=== PATIENT | male | born 1970 | race Caucasian/White ===

== ENCOUNTER 2020-12-04 12:34 | Inpatient (IN) | payer OTHER ==
[2020-12-04 13:50] VITALS: BMI 25.2
[2020-12-04] MEDS ORDERED: ACETAMINOPHEN 325 MG TABLET (FP) PO PRN (18:13)
[2020-12-04] MEDS ORDERED: NICOTINE POLACRILEX 2 MG GUM BC PRN (18:13)
[2020-12-04] MEDS ORDERED: LOPERAMIDE HCL 2 MG CAPSULE PO PRN (18:13)
[2020-12-04] MEDS ORDERED: IBUPROFEN 400 MG TABLET (FP) PO PRN (18:13)
[2020-12-04] MEDS ORDERED: P-EPHED 60MG/TRIPROLIDI 2.5MG TABLET PO PRN (18:13)
[2020-12-04] MEDS ORDERED: MAGNESIUM CITRATE 300 ML BOTTLE PO PRN (18:13)
[2020-12-04] MEDS ORDERED: MAGNESIUM HYDROX 2400MG/30ML ORAL SUSPENSION 30 ML CUP PO PRN (18:13)
[2020-12-04] MEDS ORDERED: MAG HYDROX/AL HYDROX/SIMETH 30 ML UNIT-DOSE CUP PO PRN (18:13)
[2020-12-04] MEDS ORDERED: guaiFENesin 200 MG/10 ML 10 ML UNIT-DOSE CUPS PO PRN (18:13)
[2020-12-04] MEDS ORDERED: levETIRAcetam 500 MG TABLET (FP) PO SCH (18:15)
[2020-12-04] MEDS: NICOTINE 7 MG/24 HOURS TOPICAL PATCH TD SCH (20:52)
[2020-12-04] MEDS: THIAMINE HCL 100 MG TABLET (FP) PO SCH (21:33)
[2020-12-04] MEDS: hydrOXYzine PAMOATE 25 MG CAPSULE (FP) PO SCH (21:33)
[2020-12-04] MEDS: GABAPENTIN 100 MG CAPSULE PO SCH (21:33)
[2020-12-04] MEDS: MELATONIN 5 MG TABLETS PO SCH (21:33)
[2020-12-04] MEDS ORDERED: BACITRACIN/POLYMYXIN OPH OINT 3.5 GM TUBE OS PRN (21:53)
[2020-12-04] MEDS: levETIRAcetam 500 MG TABLET (FP) PO SCH (22:13)
[2020-12-04] MEDS: APIXABAN 5 MG TABLET PO SCH (22:13)
[2020-12-04] MEDS ORDERED: [UNRECOGNIZED DRUG - REMARK] OS PRN (22:18)
[2020-12-05] MEDS: GABAPENTIN 100 MG CAPSULE PO SCH ×3 (06:40→21:41)
[2020-12-05] MEDS: hydrOXYzine PAMOATE 25 MG CAPSULE (FP) PO SCH ×5 (06:40→21:41)
[2020-12-05] MEDS: PRENATAL VITAMINS W/ FOLIC ACID TABLET (FP) PO SCH (09:50)
[2020-12-05] MEDS: levETIRAcetam 500 MG TABLET (FP) PO SCH ×2 (09:50→21:41)
[2020-12-05] MEDS: APIXABAN 5 MG TABLET PO SCH ×2 (09:51→21:41)
[2020-12-05] MEDS: NICOTINE 7 MG/24 HOURS TOPICAL PATCH TD SCH (09:51)
[2020-12-05] MEDS ORDERED: levETIRAcetam 500 MG TABLET (FP) PO SCH (10:00)
[2020-12-05 19:38] LABS: URINE APPEARANCE Clear; URINE BILIRUBIN Negative (NEGATIVE); URINE COLOR Yellow; URINE GLUCOSE (UA) Negative (NEGATIVE); URINE KETONE Negative (NEGATIVE); URINE LEUK ESTERASE Trace (NEGATIVE); URINE NITRITE Negative (NEGATIVE); URINE PROTEIN Negative (NEGATIVE); URINE UROBILINOGEN 0.2 mg/dL (0.2-1.0)
[2020-12-05] MEDS ORDERED: ARTIFICIAL TEARS (POLYVINYL ALCOHOL) OPTH DROPS OU PRN (20:02)
[2020-12-05] MEDS ORDERED: PT OWN MED DRAWER 7, Y5N ONE (20:04)
[2020-12-05] MEDS: THIAMINE HCL 100 MG TABLET (FP) PO SCH (21:41)
[2020-12-05] MEDS: MELATONIN 5 MG TABLETS PO SCH (21:41)
[2020-12-06] MEDS: GABAPENTIN 100 MG CAPSULE PO SCH ×3 (06:01→22:13)
[2020-12-06] MEDS: hydrOXYzine PAMOATE 25 MG CAPSULE (FP) PO SCH ×5 (06:02→22:12)
[2020-12-06] MEDS ORDERED: PT OWN MED DRAWER 7, Y5N ONE ×2 (08:13→19:07)
[2020-12-06] MEDS: levETIRAcetam 500 MG TABLET (FP) PO SCH ×2 (09:55→22:13)
[2020-12-06] MEDS: APIXABAN 5 MG TABLET PO SCH ×2 (09:55→22:13)
[2020-12-06] MEDS: PRENATAL VITAMINS W/ FOLIC ACID TABLET (FP) PO SCH (09:55)
[2020-12-06] MEDS: NICOTINE 7 MG/24 HOURS TOPICAL PATCH TD SCH (09:56)
[2020-12-06] MEDS: THIAMINE HCL 100 MG TABLET (FP) PO SCH (22:12)
[2020-12-06] MEDS: MELATONIN 5 MG TABLETS PO SCH (22:13)
[2020-12-07] MEDS: GABAPENTIN 100 MG CAPSULE PO SCH ×3 (06:12→21:23)
[2020-12-07] MEDS: hydrOXYzine PAMOATE 25 MG CAPSULE (FP) PO SCH ×2 (06:12→09:47)
[2020-12-07] MEDS: NICOTINE 7 MG/24 HOURS TOPICAL PATCH TD SCH (09:45)
[2020-12-07] MEDS: PRENATAL VITAMINS W/ FOLIC ACID TABLET (FP) PO SCH (09:45)
[2020-12-07] MEDS: levETIRAcetam 500 MG TABLET (FP) PO SCH ×2 (09:46→21:23)
[2020-12-07] MEDS: APIXABAN 5 MG TABLET PO SCH ×2 (09:46→21:23)
[2020-12-07] MEDS ORDERED: PT OWN MED DRAWER 7, Y5N ONE ×2 (18:48→19:39)
[2020-12-07] MEDS: THIAMINE HCL 100 MG TABLET (FP) PO SCH (21:23)
[2020-12-07] MEDS: MELATONIN 5 MG TABLETS PO SCH (21:23)
[2020-12-08] MEDS: GABAPENTIN 100 MG CAPSULE PO SCH (06:08)
[2020-12-08 07:05] VITALS: TEMP 97.9
[2020-12-08 08:50] VITALS: BP 147/81; PULSE 82
[2020-12-08] MEDS: PRENATAL VITAMINS W/ FOLIC ACID TABLET (FP) PO SCH (09:03)
[2020-12-08] MEDS: NICOTINE 7 MG/24 HOURS TOPICAL PATCH TD SCH (09:03)
[2020-12-08] MEDS: levETIRAcetam 500 MG TABLET (FP) PO SCH (09:03)
[2020-12-08] MEDS: APIXABAN 5 MG TABLET PO SCH (09:03)
== END 2020-12-08 10:29 | disposition home or self-care (01) | DRG 772 ==
LOC: YASAS 12:34 → Y5N 18:53
PROVIDERS: ADMIT Allergy & Immunology; ATTEND Allergy & Immunology
PROC: HZ42ZZZ Group Counseling for Substance Abuse Treatment, Cognitive-Behavioral (ICD-10-PCS; principal; 2020-12-04)
DX: F10.20 Alcohol dependence, uncomplicated (principal); F12.20 Cannabis dependence, uncomplicated; F17.210 Nicotine dependence, cigarettes, uncomplicated; G40.909 Epilepsy, unspecified, not intractable, without status epilepticus; Z86.718 Personal history of other venous thrombosis and embolism; Z79.01 Long term (current) use of anticoagulants
CPT/HCPCS: 81003; C9803; U0003; U0005

== ENCOUNTER 2022-01-27 16:47 | Inpatient (IN) | payer OTHER ==
[2022-01-27 18:59] VITALS: BMI 25.1
[2022-01-27] MEDS ORDERED: MAGNESIUM CITRATE 300 ML BOTTLE PO PRN (19:46)
[2022-01-27] MEDS ORDERED: BENZOCAINE/MENTHOL (CHLORASEPTIC ) LOZENGE MM PRN (19:46)
[2022-01-27] MEDS ORDERED: IBUPROFEN 400 MG TABLET (FP) PO PRN (19:46)
[2022-01-27] MEDS ORDERED: LOPERAMIDE HCL 2 MG CAPSULE PO PRN (19:46)
[2022-01-27] MEDS ORDERED: P-EPHED 60MG/TRIPROLIDI 2.5MG TABLET PO PRN (19:46)
[2022-01-27] MEDS ORDERED: guaiFENesin 200 MG/10 ML 10 ML UNIT-DOSE CUPS PO PRN (19:46)
[2022-01-27] MEDS ORDERED: BISMUTH SUBSALICYLATE 524 MG/30 ML PO PRN (19:46)
[2022-01-27] MEDS ORDERED: MAGNESIUM HYDROX 2400MG/30ML ORAL SUSPENSION 30 ML CUP PO PRN (19:46)
[2022-01-27] MEDS ORDERED: NICOTINE POLACRILEX 2 MG GUM BUC PRN (19:46)
[2022-01-27] MEDS ORDERED: IBUPROFEN 600 MG TABLET (FP) PO PRN (19:46)
[2022-01-27] MEDS ORDERED: MAG HYDROX/AL HYDROX/SIMETH 30 ML UNIT-DOSE CUP PO PRN (19:46)
[2022-01-27] MEDS ORDERED: DICYCLOMINE HCL 10 MG CAPSULE PO PRN (19:46)
[2022-01-27] MEDS ORDERED: ONDANSETRON *ODT* 4 MG TABLET SL PRN (19:46)
[2022-01-27] MEDS ORDERED: ACETAMINOPHEN 325 MG TABLET (FP) PO PRN ×2 (19:46)
[2022-01-27] MEDS ORDERED: cloNIDine HCL 0.1 MG TABLET ONE (19:51)
[2022-01-27] MEDS ORDERED: cloNIDine HCL 0.1 MG TABLET PO ONE (20:02)
[2022-01-27] MEDS: hydrOXYzine PAMOATE 25 MG CAPSULE (FP) PO PRN (22:48)
[2022-01-27] MEDS: MELATONIN 5 MG TABLETS PO SCH (22:48)
[2022-01-27] MEDS: THIAMINE HCL 100 MG TABLET (FP) PO SCH (22:49)
[2022-01-28] MEDS: BACITRACIN/POLYMYXIN OPH OINT 3.5 GM TUBE OS SCH ×3 (06:52→22:52)
[2022-01-28 09:59] LABS: HEMATOCRIT 42.1 % (35.4-49); HEMOGLOBIN 14.4 GM/dL (11.7-16.9); MCH 35.7 pg (25.7-33.7); MCHC 34.2 g/dl (32.0-35.9); MEAN CELL VOLUME 104.3 fl (80-96); MEAN PLT VOLUME 7.1 fl (7.5-11.1); PLATELET COUNT 267 10^3/uL (134-434); RBC 4.03 M/mm3 (4.00-5.60); RDW 15.7 % (11.9-15.9); WHITE BLOOD COUNT 4.8 K/mm3 (4.0-10.0)
[2022-01-28] MEDS: levETIRAcetam 500 MG TABLET (FP) PO SCH ×2 (10:12→23:07)
[2022-01-28] MEDS: PRENATAL VITAMINS W/ FOLIC ACID TABLET (FP) PO SCH (10:12)
[2022-01-28] MEDS: NICOTINE 14 MG/24 HOURS TOPICAL PATCH TD SCH (10:13)
[2022-01-28 10:45] LABS: CALCIUM 8.2 mg/dL (8.5-10.1)
[2022-01-28 10:46] LABS: ALBUMIN 3.3 g/dl (3.4-5.0); BLOOD UREA NITROGEN 6.8 mg/dL (7-18)
[2022-01-28 10:49] LABS: CREATININE 0.6 mg/dL (0.55-1.3)
[2022-01-28 10:50] LABS: BILIRUBIN,TOTAL 1.6 mg/dL (0.2-1)
[2022-01-28] MEDS ORDERED: chlordiazePOXIDE HCL 25 MG CAPSULE PO PRN (13:14)
[2022-01-28] MEDS ORDERED: cloNIDine HCL 0.1 MG TABLET PO ONE (14:00)
[2022-01-28] MEDS: APIXABAN 5 MG TABLET PO SCH ×2 (14:11→23:08)
[2022-01-28] MEDS: hydrOXYzine PAMOATE 25 MG CAPSULE (FP) PO PRN ×2 (18:23→23:08)
[2022-01-28] MEDS: chlordiazePOXIDE HCL 25 MG CAPSULE PO SCH ×2 (18:23→23:08)
[2022-01-28] MEDS: METHOCARBAMOL 500 MG TABLET PO PRN (18:23)
[2022-01-28] MEDS: THIAMINE HCL 100 MG TABLET (FP) PO SCH (23:07)
[2022-01-28] MEDS: MELATONIN 5 MG TABLETS PO SCH (23:07)
[2022-01-29] MEDS: chlordiazePOXIDE HCL 25 MG CAPSULE PO SCH ×3 (05:14→18:01)
[2022-01-29] MEDS: hydrOXYzine PAMOATE 25 MG CAPSULE (FP) PO PRN (05:14)
[2022-01-29] MEDS: APIXABAN 5 MG TABLET PO SCH (10:22)
[2022-01-29] MEDS: METHOCARBAMOL 500 MG TABLET PO PRN (10:22)
[2022-01-29] MEDS: levETIRAcetam 500 MG TABLET (FP) PO SCH ×2 (10:22→22:50)
[2022-01-29] MEDS: PRENATAL VITAMINS W/ FOLIC ACID TABLET (FP) PO SCH (10:23)
[2022-01-29] MEDS: NICOTINE 14 MG/24 HOURS TOPICAL PATCH TD SCH (10:26)
[2022-01-29] MEDS: BACITRACIN/POLYMYXIN OPH OINT 3.5 GM TUBE OS SCH ×4 (10:27→18:53)
[2022-01-29 14:19] LABS: ALBUMIN 3.6 g/dl (3.4-5.0); CALCIUM 8.8 mg/dL (8.5-10.1)
[2022-01-29 14:22] LABS: CREATININE 0.9 mg/dL (0.55-1.3)
[2022-01-29 14:24] LABS: TOT PROT 7.7 g/dl (6.4-8.2)
[2022-01-29 14:26] LABS: BILIRUBIN,TOTAL 0.7 mg/dL (0.2-1)
[2022-01-30] MEDS: APIXABAN 5 MG TABLET PO SCH ×3 (00:20→22:45)
[2022-01-30] MEDS: THIAMINE HCL 100 MG TABLET (FP) PO SCH ×2 (00:21→22:45)
[2022-01-30] MEDS: chlordiazePOXIDE HCL 25 MG CAPSULE PO SCH ×6 (00:21→22:46)
[2022-01-30] MEDS: BACITRACIN/POLYMYXIN OPH OINT 3.5 GM TUBE OS SCH ×5 (00:21→22:46)
[2022-01-30] MEDS: MELATONIN 5 MG TABLETS PO SCH ×2 (00:21→22:45)
[2022-01-30] MEDS: hydrOXYzine PAMOATE 25 MG CAPSULE (FP) PO PRN (10:11)
[2022-01-30] MEDS: NICOTINE 14 MG/24 HOURS TOPICAL PATCH TD SCH (10:13)
[2022-01-30] MEDS: levETIRAcetam 500 MG TABLET (FP) PO SCH ×2 (12:00→22:46)
[2022-01-30] MEDS: PRENATAL VITAMINS W/ FOLIC ACID TABLET (FP) PO SCH (12:03)
[2022-01-31] MEDS ORDERED: chlordiazePOXIDE HCL 10 MG CAPSULE PO PRN
[2022-01-31] MEDS: chlordiazePOXIDE HCL 10 MG CAPSULE PO SCH ×4 (06:00→22:18)
[2022-01-31] MEDS: APIXABAN 5 MG TABLET PO SCH (10:05)
[2022-01-31] MEDS: PRENATAL VITAMINS W/ FOLIC ACID TABLET (FP) PO SCH (10:05)
[2022-01-31] MEDS: levETIRAcetam 500 MG TABLET (FP) PO SCH (10:11)
[2022-01-31] MEDS: BACITRACIN/POLYMYXIN OPH OINT 3.5 GM TUBE OS SCH ×4 (10:11→22:19)
[2022-01-31] MEDS: NICOTINE 14 MG/24 HOURS TOPICAL PATCH TD SCH (10:11)
[2022-01-31] MEDS ORDERED: GABAPENTIN 100 MG CAPSULE PO SCH (14:00)
[2022-01-31] MEDS: ASPIRIN COATED 81 MG TABLET.EC PO SCH (15:30)
[2022-01-31] MEDS: levETIRAcetam 250 MG TABLET PO SCH (22:18)
[2022-01-31] MEDS: MELATONIN 5 MG TABLETS PO SCH (22:18)
[2022-01-31] MEDS: THIAMINE HCL 100 MG TABLET (FP) PO SCH (22:18)
[2022-02-01] MEDS: chlordiazePOXIDE HCL 10 MG CAPSULE PO SCH ×2 (05:50→17:47)
[2022-02-01] MEDS: hydrOXYzine PAMOATE 25 MG CAPSULE (FP) PO PRN ×2 (05:50→22:23)
[2022-02-01] MEDS: ASPIRIN COATED 81 MG TABLET.EC PO SCH (10:41)
[2022-02-01] MEDS: PRENATAL VITAMINS W/ FOLIC ACID TABLET (FP) PO SCH (10:42)
[2022-02-01] MEDS: levETIRAcetam 250 MG TABLET PO SCH ×2 (10:42→22:23)
[2022-02-01] MEDS: NICOTINE 14 MG/24 HOURS TOPICAL PATCH TD SCH (10:43)
[2022-02-01] MEDS: BACITRACIN/POLYMYXIN OPH OINT 3.5 GM TUBE OS SCH ×4 (10:44→22:25)
[2022-02-01] MEDS: METHOCARBAMOL 500 MG TABLET PO PRN (22:23)
[2022-02-01] MEDS: MELATONIN 5 MG TABLETS PO SCH (22:23)
[2022-02-01] MEDS: THIAMINE HCL 100 MG TABLET (FP) PO SCH (22:23)
[2022-02-02] MEDS ORDERED: chlordiazePOXIDE HCL 10 MG CAPSULE PO ONE (05:00)
[2022-02-02] MEDS: METHOCARBAMOL 500 MG TABLET PO PRN (05:40)
[2022-02-02 10:03] VITALS: BP 135/73; PULSE 82; RESP 19; TEMP 97.3
[2022-02-02] MEDS: levETIRAcetam 250 MG TABLET PO SCH (10:10)
[2022-02-02] MEDS: PRENATAL VITAMINS W/ FOLIC ACID TABLET (FP) PO SCH (10:10)
[2022-02-02] MEDS: ASPIRIN COATED 81 MG TABLET.EC PO SCH (10:11)
[2022-02-02] MEDS: BACITRACIN/POLYMYXIN OPH OINT 3.5 GM TUBE OS SCH (10:12)
[2022-02-02] MEDS: NICOTINE 14 MG/24 HOURS TOPICAL PATCH TD SCH (11:17)
== END 2022-02-02 12:37 | disposition home or self-care (01) | DRG 775 ==
LOC: YASAS 16:47 → Y6N 21:06
PROVIDERS: ADMIT Allergy & Immunology; ATTEND Surgery
PROC: HZ2ZZZZ Detoxification Services for Substance Abuse Treatment (ICD-10-PCS; principal; 2022-01-27)
DX: F10.230 Alcohol dependence with withdrawal, uncomplicated (principal); F12.20 Cannabis dependence, uncomplicated; F17.210 Nicotine dependence, cigarettes, uncomplicated; I10 Essential (primary) hypertension; R07.9 Chest pain, unspecified; G40.909 Epilepsy, unspecified, not intractable, without status epilepticus
CPT/HCPCS: 36415; 80053; 85027; 86780; 87811; 93005; 93010; C9803-CS; U0003; U0005

== ENCOUNTER 2022-04-09 11:06 | Inpatient (IN) | payer OTHER ==
[2022-04-09 13:48] VITALS: BMI 25.1
[2022-04-09] MEDS ORDERED: ACETAMINOPHEN 325 MG TABLET (FP) PO PRN ×2 (14:18)
[2022-04-09] MEDS ORDERED: MAGNESIUM CITRATE 300 ML BOTTLE PO PRN (14:18)
[2022-04-09] MEDS ORDERED: MAG HYDROX/AL HYDROX/SIMETH 30 ML UNIT-DOSE CUP PO PRN (14:18)
[2022-04-09] MEDS ORDERED: MAGNESIUM HYDROX 2400MG/30ML ORAL SUSPENSION 30 ML CUP PO PRN (14:18)
[2022-04-09] MEDS ORDERED: LOPERAMIDE HCL 2 MG CAPSULE PO PRN (14:18)
[2022-04-09] MEDS ORDERED: NALOXONE HCL (KLOXXADO) 8 MG SPRAY NS PRN (14:18)
[2022-04-09] MEDS ORDERED: IBUPROFEN 600 MG TABLET (FP) PO PRN (14:18)
[2022-04-09] MEDS ORDERED: chlordiazePOXIDE HCL 25 MG CAPSULE PO PRN (14:18)
[2022-04-09] MEDS ORDERED: ONDANSETRON *ODT* 4 MG TABLET SL PRN (14:18)
[2022-04-09] MEDS ORDERED: IBUPROFEN 400 MG TABLET (FP) PO PRN (14:18)
[2022-04-09] MEDS ORDERED: DICYCLOMINE HCL 10 MG CAPSULE PO PRN (14:18)
[2022-04-09] MEDS ORDERED: BENZOCAINE/MENTHOL (CHLORASEPTIC ) LOZENGE MM PRN (14:18)
[2022-04-09] MEDS ORDERED: BISMUTH SUBSALICYLATE 524 MG/30 ML PO PRN (14:18)
[2022-04-09] MEDS: chlordiazePOXIDE HCL 25 MG CAPSULE PO SCH ×2 (17:58→22:13)
[2022-04-09] MEDS: levETIRAcetam 500 MG TABLET (FP) PO SCH (18:23)
[2022-04-09] MEDS: BACITRACIN/POLYMYXIN OPH OINT 3.5 GM TUBE OS SCH ×2 (18:52→22:11)
[2022-04-09] MEDS: THIAMINE HCL 100 MG TABLET (FP) PO SCH (22:11)
[2022-04-09] MEDS: MELATONIN 5 MG TABLETS PO SCH (22:11)
[2022-04-09] MEDS: METHOCARBAMOL 500 MG TABLET PO PRN (22:13)
[2022-04-09] MEDS: hydrOXYzine PAMOATE 25 MG CAPSULE (FP) PO PRN (22:13)
[2022-04-10] MEDS: chlordiazePOXIDE HCL 25 MG CAPSULE PO SCH ×5 (05:24→22:09)
[2022-04-10] MEDS: levETIRAcetam 500 MG TABLET (FP) PO SCH ×2 (06:42→18:05)
[2022-04-10] MEDS ORDERED: PATIENT'S OWN MEDICATION (NON-FORMULARY) (Aspirin [Vazalore] 81 MG Capsule) PO SCH (10:00)
[2022-04-10] MEDS: ASPIRIN 81 MG CHEWABLE TABLETS PO SCH (10:23)
[2022-04-10] MEDS: BACITRACIN/POLYMYXIN OPH OINT 3.5 GM TUBE OS SCH ×4 (10:24→22:09)
[2022-04-10] MEDS: PRENATAL VITAMINS W/ FOLIC ACID TABLET (FP) PO SCH (10:24)
[2022-04-10 11:26] LABS: HEMOGLOBIN 14.3 GM/dL (11.7-16.9); MCH 34.3 pg (25.7-33.7); MCHC 33.1 g/dl (32.0-35.9); MEAN CELL VOLUME 103.5 fl (80-96); MEAN PLT VOLUME 7.4 fl (7.5-11.1); PLATELET COUNT 368 10^3/uL (134-434); RBC 4.16 M/mm3 (4.00-5.60); RDW 13.6 % (11.9-15.9)
[2022-04-10 11:46] LABS: ALBUMIN 3.5 g/dl (3.4-5.0); CALCIUM 9.3 mg/dL (8.5-10.1)
[2022-04-10 11:47] LABS: BLOOD UREA NITROGEN 16.7 mg/dL (7-18)
[2022-04-10 11:50] LABS: CREATININE 0.9 mg/dL (0.55-1.3)
[2022-04-10 11:51] LABS: BILIRUBIN,TOTAL 0.6 mg/dL (0.2-1); TOT PROT 6.7 g/dl (6.4-8.2)
[2022-04-10] MEDS: MELATONIN 5 MG TABLETS PO SCH (22:08)
[2022-04-10] MEDS: METHOCARBAMOL 500 MG TABLET PO PRN (22:08)
[2022-04-10] MEDS: THIAMINE HCL 100 MG TABLET (FP) PO SCH (22:08)
[2022-04-10] MEDS: hydrOXYzine PAMOATE 25 MG CAPSULE (FP) PO PRN (22:08)
[2022-04-11] MEDS: chlordiazePOXIDE HCL 25 MG CAPSULE PO SCH ×4 (05:50→23:31)
[2022-04-11] MEDS: levETIRAcetam 500 MG TABLET (FP) PO SCH ×2 (07:30→18:18)
[2022-04-11] MEDS: PRENATAL VITAMINS W/ FOLIC ACID TABLET (FP) PO SCH (10:29)
[2022-04-11] MEDS: ASPIRIN 81 MG CHEWABLE TABLETS PO SCH (10:29)
[2022-04-11] MEDS: BACITRACIN/POLYMYXIN OPH OINT 3.5 GM TUBE OS SCH ×4 (10:29→22:05)
[2022-04-11] MEDS: METHOCARBAMOL 500 MG TABLET PO PRN (18:18)
[2022-04-11] MEDS: MELATONIN 5 MG TABLETS PO SCH (22:05)
[2022-04-11] MEDS: THIAMINE HCL 100 MG TABLET (FP) PO SCH (22:05)
[2022-04-12] MEDS ORDERED: chlordiazePOXIDE HCL 10 MG CAPSULE PO PRN
[2022-04-12] MEDS: levETIRAcetam 500 MG TABLET (FP) PO SCH (06:17)
[2022-04-12] MEDS: chlordiazePOXIDE HCL 10 MG CAPSULE PO SCH ×2 (06:19→10:22)
[2022-04-12 09:23] VITALS: RESP 18
[2022-04-12] MEDS: PRENATAL VITAMINS W/ FOLIC ACID TABLET (FP) PO SCH (10:21)
[2022-04-12] MEDS: ASPIRIN 81 MG CHEWABLE TABLETS PO SCH (10:21)
[2022-04-12] MEDS: BACITRACIN/POLYMYXIN OPH OINT 3.5 GM TUBE OS SCH (10:22)
[2022-04-12 13:08] VITALS: BP 138/89; PULSE 78; TEMP 98.3
[2022-04-13] MEDS ORDERED: chlordiazePOXIDE HCL 10 MG CAPSULE PO SCH (05:00)
[2022-04-14] MEDS ORDERED: chlordiazePOXIDE HCL 10 MG CAPSULE PO ONE (05:00)
== END 2022-04-12 13:37 | disposition other institution (70) | DRG 775 ==
LOC: YASAS 11:06 → Y3N 13:47
PROVIDERS: ADMIT Allergy & Immunology; ATTEND Surgery
PROC: HZ2ZZZZ Detoxification Services for Substance Abuse Treatment (ICD-10-PCS; principal; 2022-04-09)
DX: F10.230 Alcohol dependence with withdrawal, uncomplicated (principal); F12.20 Cannabis dependence, uncomplicated; F17.210 Nicotine dependence, cigarettes, uncomplicated; I10 Essential (primary) hypertension; R56.9 Unspecified convulsions; R73.9 Hyperglycemia, unspecified; Z74.01 Bed confinement status
CPT/HCPCS: 36415; 80053; 85027; 86780; C9803-CS; U0003; U0005

== ENCOUNTER 2022-04-12 13:44 | Inpatient (IN) | payer OTHER ==
[2022-04-12] MEDS ORDERED: guaiFENesin 200 MG/10 ML 10 ML UNIT-DOSE CUPS PO PRN (16:28)
[2022-04-12] MEDS ORDERED: MAGNESIUM CITRATE 300 ML BOTTLE PO PRN (16:28)
[2022-04-12] MEDS ORDERED: hydrOXYzine PAMOATE 25 MG CAPSULE (FP) PO PRN (16:28)
[2022-04-12] MEDS ORDERED: BENZOCAINE/MENTHOL (CHLORASEPTIC ) LOZENGE MM PRN (16:28)
[2022-04-12] MEDS ORDERED: ACETAMINOPHEN 325 MG TABLET (FP) PO PRN (16:28)
[2022-04-12] MEDS ORDERED: P-EPHED 60MG/TRIPROLIDI 2.5MG TABLET PO PRN (16:28)
[2022-04-12] MEDS ORDERED: LOPERAMIDE HCL 2 MG CAPSULE PO PRN (16:28)
[2022-04-12] MEDS ORDERED: MAG HYDROX/AL HYDROX/SIMETH 30 ML UNIT-DOSE CUP PO PRN (16:28)
[2022-04-12] MEDS ORDERED: MAGNESIUM HYDROX 2400MG/30ML ORAL SUSPENSION 30 ML CUP PO PRN (16:28)
[2022-04-12] MEDS ORDERED: IBUPROFEN 400 MG TABLET (FP) PO PRN (16:28)
[2022-04-12] MEDS: THIAMINE HCL 100 MG TABLET (FP) PO SCH (21:48)
[2022-04-12] MEDS: MELATONIN 5 MG TABLETS PO SCH (21:48)
[2022-04-12] MEDS: BACITRACIN/POLYMYXIN OPH OINT 3.5 GM TUBE OS SCH ×2 (22:20→23:03)
[2022-04-13] MEDS: PRENATAL VITAMINS W/ FOLIC ACID TABLET (FP) PO SCH ×3 (06:31→10:44)
[2022-04-13] MEDS ORDERED: PRENATAL VITAMINS W/ FOLIC ACID TABLET (FP) PO SCH (10:00)
[2022-04-13] MEDS: ASPIRIN 81 MG CHEWABLE TABLETS PO SCH (10:44)
[2022-04-13] MEDS: NALTREXONE HCL 50 MG TABLET PO SCH (10:44)
[2022-04-13] MEDS: levETIRAcetam XR 500 MG TAB PO SCH (10:46)
[2022-04-13] MEDS: BACITRACIN/POLYMYXIN OPH OINT 3.5 GM TUBE OS SCH ×4 (10:46→21:34)
[2022-04-13] MEDS: THIAMINE HCL 100 MG TABLET (FP) PO SCH (21:34)
[2022-04-13] MEDS: MELATONIN 5 MG TABLETS PO SCH (21:34)
[2022-04-14] MEDS: BACITRACIN/POLYMYXIN OPH OINT 3.5 GM TUBE OS SCH ×4 (10:26→21:45)
[2022-04-14] MEDS: PRENATAL VITAMINS W/ FOLIC ACID TABLET (FP) PO SCH (10:26)
[2022-04-14] MEDS: levETIRAcetam XR 500 MG TAB PO SCH (10:27)
[2022-04-14] MEDS: NALTREXONE HCL 50 MG TABLET PO SCH (10:27)
[2022-04-14] MEDS: ASPIRIN 81 MG CHEWABLE TABLETS PO SCH (10:27)
[2022-04-14] MEDS: THIAMINE HCL 100 MG TABLET (FP) PO SCH (21:45)
[2022-04-14] MEDS: MELATONIN 5 MG TABLETS PO SCH (21:46)
[2022-04-15] MEDS: NALTREXONE HCL 50 MG TABLET PO SCH (10:19)
[2022-04-15] MEDS: ASPIRIN 81 MG CHEWABLE TABLETS PO SCH (10:19)
[2022-04-15] MEDS: levETIRAcetam XR 500 MG TAB PO SCH (10:20)
[2022-04-15] MEDS: BACITRACIN/POLYMYXIN OPH OINT 3.5 GM TUBE OS SCH ×4 (10:20→21:41)
[2022-04-15] MEDS: PRENATAL VITAMINS W/ FOLIC ACID TABLET (FP) PO SCH (10:20)
[2022-04-15] MEDS ORDERED: LACTULOSE 20 GM/30 ML UDC (FOR ORAL USE ONLY) PO SCH (14:00)
[2022-04-15] MEDS: LACTULOSE 20 GM/30 ML UDC (FOR ORAL USE ONLY) PO SCH ×2 (17:55→21:41)
[2022-04-15] MEDS: MELATONIN 5 MG TABLETS PO SCH (21:41)
[2022-04-15] MEDS: THIAMINE HCL 100 MG TABLET (FP) PO SCH (21:42)
[2022-04-16] MEDS: PRENATAL VITAMINS W/ FOLIC ACID TABLET (FP) PO SCH (10:10)
[2022-04-16] MEDS: levETIRAcetam XR 500 MG TAB PO SCH (10:10)
[2022-04-16] MEDS: NALTREXONE HCL 50 MG TABLET PO SCH (10:10)
[2022-04-16] MEDS: ASPIRIN 81 MG CHEWABLE TABLETS PO SCH (10:10)
[2022-04-16] MEDS: LACTULOSE 20 GM/30 ML UDC (FOR ORAL USE ONLY) PO SCH ×4 (10:10→21:41)
[2022-04-16] MEDS: BACITRACIN/POLYMYXIN OPH OINT 3.5 GM TUBE OS SCH ×4 (10:10→21:41)
[2022-04-16] MEDS: MELATONIN 5 MG TABLETS PO SCH (21:41)
[2022-04-16] MEDS: THIAMINE HCL 100 MG TABLET (FP) PO SCH (21:41)
[2022-04-17] MEDS: PRENATAL VITAMINS W/ FOLIC ACID TABLET (FP) PO SCH (10:10)
[2022-04-17] MEDS: ASPIRIN 81 MG CHEWABLE TABLETS PO SCH (10:10)
[2022-04-17] MEDS: NALTREXONE HCL 50 MG TABLET PO SCH (10:10)
[2022-04-17] MEDS: levETIRAcetam XR 500 MG TAB PO SCH (10:11)
[2022-04-17] MEDS: LACTULOSE 20 GM/30 ML UDC (FOR ORAL USE ONLY) PO SCH ×4 (10:12→21:31)
[2022-04-17] MEDS: BACITRACIN/POLYMYXIN OPH OINT 3.5 GM TUBE OS SCH ×4 (10:13→21:31)
[2022-04-17] MEDS: THIAMINE HCL 100 MG TABLET (FP) PO SCH (21:31)
[2022-04-17] MEDS: MELATONIN 5 MG TABLETS PO SCH (21:31)
[2022-04-18] MEDS: PRENATAL VITAMINS W/ FOLIC ACID TABLET (FP) PO SCH (10:20)
[2022-04-18] MEDS: levETIRAcetam XR 500 MG TAB PO SCH (10:20)
[2022-04-18] MEDS: BACITRACIN/POLYMYXIN OPH OINT 3.5 GM TUBE OS SCH ×4 (10:20→21:53)
[2022-04-18] MEDS: ASPIRIN 81 MG CHEWABLE TABLETS PO SCH (10:20)
[2022-04-18] MEDS: NALTREXONE HCL 50 MG TABLET PO SCH (10:20)
[2022-04-18] MEDS: LACTULOSE 20 GM/30 ML UDC (FOR ORAL USE ONLY) PO SCH ×4 (10:22→21:53)
[2022-04-18] MEDS: THIAMINE HCL 100 MG TABLET (FP) PO SCH (21:51)
[2022-04-18] MEDS: MELATONIN 5 MG TABLETS PO SCH (21:51)
[2022-04-19] MEDS: BACITRACIN/POLYMYXIN OPH OINT 3.5 GM TUBE OS SCH ×4 (10:09→21:38)
[2022-04-19] MEDS: LACTULOSE 20 GM/30 ML UDC (FOR ORAL USE ONLY) PO SCH ×4 (10:09→21:37)
[2022-04-19] MEDS: PRENATAL VITAMINS W/ FOLIC ACID TABLET (FP) PO SCH (10:09)
[2022-04-19] MEDS: NALTREXONE HCL 50 MG TABLET PO SCH (10:09)
[2022-04-19] MEDS: ASPIRIN 81 MG CHEWABLE TABLETS PO SCH (10:09)
[2022-04-19] MEDS: levETIRAcetam XR 500 MG TAB PO SCH (10:10)
[2022-04-19] MEDS: MELATONIN 5 MG TABLETS PO SCH (21:37)
[2022-04-19] MEDS: THIAMINE HCL 100 MG TABLET (FP) PO SCH (21:37)
[2022-04-20] MEDS: ASPIRIN 81 MG CHEWABLE TABLETS PO SCH (10:24)
[2022-04-20] MEDS: NALTREXONE HCL 50 MG TABLET PO SCH (10:24)
[2022-04-20] MEDS: PRENATAL VITAMINS W/ FOLIC ACID TABLET (FP) PO SCH (10:24)
[2022-04-20] MEDS: levETIRAcetam XR 500 MG TAB PO SCH (10:25)
[2022-04-20] MEDS: BACITRACIN/POLYMYXIN OPH OINT 3.5 GM TUBE OS SCH ×4 (10:25→21:41)
[2022-04-20] MEDS: LACTULOSE 20 GM/30 ML UDC (FOR ORAL USE ONLY) PO SCH (10:56)
[2022-04-20] MEDS: THIAMINE HCL 100 MG TABLET (FP) PO SCH (21:41)
[2022-04-20] MEDS: MELATONIN 5 MG TABLETS PO SCH (21:41)
[2022-04-21] MEDS: NALTREXONE HCL 50 MG TABLET PO SCH (10:00)
[2022-04-21] MEDS: PRENATAL VITAMINS W/ FOLIC ACID TABLET (FP) PO SCH (10:00)
[2022-04-21] MEDS: ASPIRIN 81 MG CHEWABLE TABLETS PO SCH (10:00)
[2022-04-21] MEDS: levETIRAcetam XR 500 MG TAB PO SCH (10:01)
[2022-04-21] MEDS: BACITRACIN/POLYMYXIN OPH OINT 3.5 GM TUBE OS SCH ×4 (10:03→21:28)
[2022-04-21] MEDS: MELATONIN 5 MG TABLETS PO SCH (21:28)
[2022-04-21] MEDS: THIAMINE HCL 100 MG TABLET (FP) PO SCH (21:28)
[2022-04-22 07:17] VITALS: RESP 18
[2022-04-22] MEDS: PRENATAL VITAMINS W/ FOLIC ACID TABLET (FP) PO SCH (10:14)
[2022-04-22] MEDS: NALTREXONE HCL 50 MG TABLET PO SCH (10:14)
[2022-04-22] MEDS: BACITRACIN/POLYMYXIN OPH OINT 3.5 GM TUBE OS SCH ×4 (10:14→21:22)
[2022-04-22] MEDS: ASPIRIN 81 MG CHEWABLE TABLETS PO SCH (10:14)
[2022-04-22] MEDS: levETIRAcetam XR 500 MG TAB PO SCH (10:16)
[2022-04-22] MEDS: THIAMINE HCL 100 MG TABLET (FP) PO SCH (21:22)
[2022-04-22] MEDS: MELATONIN 5 MG TABLETS PO SCH (21:22)
[2022-04-23] MEDS: NALTREXONE HCL 50 MG TABLET PO SCH (09:50)
[2022-04-23] MEDS: levETIRAcetam XR 500 MG TAB PO SCH (09:50)
[2022-04-23] MEDS: ASPIRIN 81 MG CHEWABLE TABLETS PO SCH (09:50)
[2022-04-23] MEDS: PRENATAL VITAMINS W/ FOLIC ACID TABLET (FP) PO SCH (09:50)
[2022-04-23] MEDS: BACITRACIN/POLYMYXIN OPH OINT 3.5 GM TUBE OS SCH ×4 (09:51→21:22)
[2022-04-23] MEDS: MELATONIN 5 MG TABLETS PO SCH (21:21)
[2022-04-23] MEDS: THIAMINE HCL 100 MG TABLET (FP) PO SCH (21:21)
[2022-04-24] MEDS: ASPIRIN 81 MG CHEWABLE TABLETS PO SCH (09:38)
[2022-04-24] MEDS: NALTREXONE HCL 50 MG TABLET PO SCH (09:38)
[2022-04-24] MEDS: PRENATAL VITAMINS W/ FOLIC ACID TABLET (FP) PO SCH (09:38)
[2022-04-24] MEDS: levETIRAcetam XR 500 MG TAB PO SCH (09:39)
[2022-04-24] MEDS: BACITRACIN/POLYMYXIN OPH OINT 3.5 GM TUBE OS SCH ×4 (10:16→21:33)
[2022-04-24] MEDS: THIAMINE HCL 100 MG TABLET (FP) PO SCH (21:33)
[2022-04-24] MEDS: MELATONIN 5 MG TABLETS PO SCH (21:33)
[2022-04-25] MEDS: ASPIRIN 81 MG CHEWABLE TABLETS PO SCH (09:41)
[2022-04-25] MEDS: PRENATAL VITAMINS W/ FOLIC ACID TABLET (FP) PO SCH (09:41)
[2022-04-25] MEDS: NALTREXONE HCL 50 MG TABLET PO SCH (09:41)
[2022-04-25] MEDS: levETIRAcetam XR 500 MG TAB PO SCH (09:42)
[2022-04-25] MEDS: BACITRACIN/POLYMYXIN OPH OINT 3.5 GM TUBE OS SCH ×4 (09:43→21:29)
[2022-04-25] MEDS: MELATONIN 5 MG TABLETS PO SCH (21:29)
[2022-04-25] MEDS: THIAMINE HCL 100 MG TABLET (FP) PO SCH (21:29)
[2022-04-26 07:11] VITALS: BP 129/78; PULSE 82; TEMP 97.1
[2022-04-26] MEDS: PRENATAL VITAMINS W/ FOLIC ACID TABLET (FP) PO SCH (09:27)
[2022-04-26] MEDS: BACITRACIN/POLYMYXIN OPH OINT 3.5 GM TUBE OS SCH (09:27)
[2022-04-26] MEDS: levETIRAcetam XR 500 MG TAB PO SCH (09:27)
[2022-04-26] MEDS: NALTREXONE HCL 50 MG TABLET PO SCH (09:27)
[2022-04-26] MEDS: ASPIRIN 81 MG CHEWABLE TABLETS PO SCH (09:27)
== END 2022-04-26 10:45 | disposition home or self-care (01) | DRG 772 ==
LOC: YASAS 13:44 → Y5N 13:48
PROVIDERS: ADMIT Allergy & Immunology; ATTEND Psychiatry & Neurology Pain Medicine
PROC: HZ42ZZZ Group Counseling for Substance Abuse Treatment, Cognitive-Behavioral (ICD-10-PCS; principal; 2022-04-12)
DX: F10.20 Alcohol dependence, uncomplicated (principal); F12.20 Cannabis dependence, uncomplicated; F17.210 Nicotine dependence, cigarettes, uncomplicated; G40.909 Epilepsy, unspecified, not intractable, without status epilepticus; I10 Essential (primary) hypertension; R79.89 Other specified abnormal findings of blood chemistry; Z87.828 Personal history of other (healed) physical injury and trauma
CPT/HCPCS: 82140

== ENCOUNTER 2023-12-13 19:27 | Inpatient (IN) | payer OTHER ==
[2023-12-13 21:03] VITALS: BMI 22.3
[2023-12-13] MEDS ORDERED: ACETAMINOPHEN 325 MG TABLET (FP) PO PRN (23:01)
[2023-12-13] MEDS ORDERED: guaiFENesin 600 MG TABLET.ER (FP) PO PRN (23:01)
[2023-12-13] MEDS ORDERED: POLYETHYLENE GLYCOL (HEALTHYLAX) 3350 17 GM PACKET PO PRN (23:01)
[2023-12-13] MEDS ORDERED: BENZOCAINE/MENTHOL (CHLORASEPTIC ) LOZENGE MM PRN (23:01)
[2023-12-13] MEDS ORDERED: BENZONATATE 200 MG CAPSULE PO PRN (23:01)
[2023-12-13] MEDS ORDERED: IBUPROFEN 400 MG TABLET (FP) PO PRN (23:01)
[2023-12-13] MEDS ORDERED: NALOXONE (NARCAN) HCL 4 MG/0.1 ML SPRAY NS PRN (23:01)
[2023-12-13] MEDS ORDERED: ONDANSETRON *ODT* 4 MG TABLET SL PRN (23:01)
[2023-12-13] MEDS ORDERED: NALOXONE HCL 0.4 MG/ML VIAL IM PRN (23:01)
[2023-12-13] MEDS ORDERED: MAG HYDROX/AL HYDROX/SIMETH 30 ML UNIT-DOSE CUP PO PRN (23:01)
[2023-12-13] MEDS ORDERED: LOPERAMIDE HCL 2 MG CAPSULE PO PRN (23:01)
[2023-12-13] MEDS ORDERED: MAGNESIUM HYDROX 2400MG/30ML ORAL SUSPENSION 30 ML CUP PO PRN (23:01)
[2023-12-13] MEDS ORDERED: DICYCLOMINE HCL 10 MG CAPSULE PO PRN (23:01)
[2023-12-14] MEDS: PRENATAL VITAMINS W/ FOLIC ACID TABLET (FP) PO SCH (10:18)
[2023-12-14 11:44] LABS: HEMATOCRIT 37.4 % (35.4-49); HEMOGLOBIN 12.9 GM/dL (11.7-16.9); MCH 35.5 pg (25.7-33.7); MCHC 34.6 g/dl (32.0-35.9); MEAN CELL VOLUME 102.6 fl (80-96); MEAN PLT VOLUME 6.7 fl (7.5-11.1); PLATELET COUNT 340 10^3/uL (134-434); RBC 3.64 M/mm3 (4.00-5.60); RDW 15.7 % (11.9-15.9); WHITE BLOOD COUNT 5.8 K/mm3 (4.0-10.0)
[2023-12-14 11:59] LABS: CHLORIDE 105 mmol/L (98-107); POTASSIUM 4.2 mmol/L (3.5-5.1); SODIUM 140 mmol/L (136-145)
[2023-12-14 12:05] LABS: ANION GAP 6 mmol/L (4-13); CO2 29 mmol/L (21-32); GLUCOSE,RANDOM 87 mg/dL (74-106); SGPT/ALT 23 U/L (13-61)
[2023-12-14 12:07] LABS: CREATININE 0.7 mg/dL (0.55-1.3)
[2023-12-14 12:08] LABS: SGOT/AST 25 U/L (15-37)
[2023-12-14 12:09] LABS: BILIRUBIN,TOTAL 0.6 mg/dL (0.2-1); TOT PROT 6.1 g/dl (6.4-8.2)
[2023-12-14 12:10] LABS: ALK PHOS 97 U/L (45-117)
[2023-12-14] MEDS: IBUPROFEN 600 MG TABLET (FP) PO PRN (18:22)
[2023-12-14] MEDS: BISMUTH SUBSALICYLATE 524 MG/30 ML PO PRN (18:23)
[2023-12-14] MEDS: amLODIPine BESYLATE 10 MG TABLET (FP) PO ONE (19:17)
[2023-12-14] MEDS: MELATONIN 5 MG TABLETS PO SCH (22:05)
[2023-12-14] MEDS: levETIRAcetam XR 750 MG TAB PO SCH (22:05)
[2023-12-14] MEDS: THIAMINE 100 MG TABLET PO SCH (22:05)
[2023-12-15] MEDS: ASPIRIN 81 MG CHEWABLE TABLETS PO SCH (09:30)
[2023-12-15 20:43] VITALS: RESP 16
[2023-12-16 09:15] VITALS: BP 142/82; PULSE 88; TEMP 97.3
== END 2023-12-16 11:05 | disposition home or self-care (01) | DRG 897 ==
LOC: YASAS 19:27 → Y3N 23:11
PROVIDERS: ADMIT Allergy & Immunology; ATTEND Surgery
PROC: HZ2ZZZZ Detoxification Services for Substance Abuse Treatment (ICD-10-PCS; principal; 2023-12-13)
DX: F10.20 Alcohol dependence, uncomplicated (principal); Z59.01 Sheltered homelessness; F12.10 Cannabis abuse, uncomplicated; F17.210 Nicotine dependence, cigarettes, uncomplicated; I10 Essential (primary) hypertension; R56.9 Unspecified convulsions
CPT/HCPCS: 36415; 80053; 80305; 80307; 85027; 86780; 93005; 93010